=== PATIENT | female | born 1990 | race Caucasian/White ===

== ENCOUNTER 2017-07-15 02:31 | Emergency (ER) | payer MEDICAID, OTHER ==
[~2017-07-15] VITALS: Ht 157.5 cm; Wt 45.4 kg
[2017-07-15 03:14] VITALS: BP 126/77
[2017-07-15] MEDS ORDERED: LIDOCAINE HCL/PF 1% 30 ML VIAL TP ONE (03:30)
[2017-07-15] MEDS ORDERED: TDAP [DIPH/PERTUSSIS/TET] 0.5 ML VIAL IM ONE ×2 (03:30→03:34)
[2017-07-15] MEDS ORDERED: LIDOCAINE 1%-EPI 1:100,000 20 ML VIAL ONE (03:34)
[2017-07-15] MEDS ORDERED: LIDOCAINE HCL/MPF 1% 30 ML VIAL IJ ONE (03:49)
--- NOTE | 2017-07-15 03:49 | NUR ---
AT BEDSIDE FOR LAC REPAIR.
== END 2017-07-15 04:06 | disposition home or self-care (01) ==
LOC: ER 02:35
DX: S01.511A Laceration without foreign body of lip, initial encounter (principal); Z88.5 Allergy status to narcotic agent; Z90.89 Acquired absence of other organs; Y04.2XXA Assault by strike against or bumped into by another person, initial encounter; Y93.89 Activity, other specified; Y92.89 Other specified places as the place of occurrence of the external cause; Y99.8 Other external cause status
CPT/HCPCS: 40650; 90471; 90715; 99284; A4606; A6402; J3490 ×3; Z7610

== ENCOUNTER 2017-10-25 21:28 | Emergency (ER) | payer SELFPAY ==
[~2017-10-25] VITALS: Ht 152.4 cm; Wt 56.7 kg
[2017-10-25 21:30] VITALS: BP 136/75
== END 2017-10-25 22:41 | disposition home or self-care (01) ==
LOC: ER 21:28
DX: S39.012A Strain of muscle, fascia and tendon of lower back, initial encounter (principal); S09.8XXA Other specified injuries of head, initial encounter; S00.81XA Abrasion of other part of head, initial encounter; Z88.6 Allergy status to analgesic agent; Z90.89 Acquired absence of other organs; V49.59XA Passenger injured in collision with other motor vehicles in traffic accident, initial encounter; Y93.89 Activity, other specified; Y92.413 State road as the place of occurrence of the external cause; Y99.8 Other external cause status
CPT/HCPCS: 99283; A4606; Z7610